=== PATIENT | female | born 1975 | race Caucasian/White ===

== ENCOUNTER 2018-06-10 07:04 | Day surgery (SDC) | payer MEDICAID ==
[2018-06-10] MEDS ORDERED: PROPOFOL 200 MG/20 ML VIAL As Ordered ×2 (08:55→09:02)
[2018-06-10] MEDS ORDERED: GLYCOPYRROLATE INJ 0.2 MG/ML 2 ML VIAL As Ordered (08:55)
[2018-06-10] MEDS ORDERED: fentaNYL 250 MCG/5 ML INJECTION (J3010) As Ordered (08:55)
[2018-06-10] MEDS ORDERED: ROCURONIUM BROMIDE 50 MG/5 ML VIAL As Ordered (08:55)
[2018-06-10] MEDS ORDERED: MIDAZOLAM INJ 2 MG/2 ML VIAL (J2250) As Ordered (08:55)
[2018-06-10] MEDS ORDERED: ONDANSETRON 4MG/2ML VIAL (J2405) As Ordered (08:55)
[2018-06-10] MEDS ORDERED: NEOSTIGMINE 10 MG/10 ML VIAL (J2710) As Ordered (08:55)
[2018-06-10] MEDS ORDERED: LIDOCAINE 2% INJ 100 MG/5 ML SDV (FOR ANES.) As Ordered (08:55)
[2018-06-10] MEDS ORDERED: dexameTHASONE 4 MG/ML 1ML VIAL (J1100) As Ordered (08:55)
[2018-06-10] MEDS ORDERED: SUGAMMADEX SODIUM 500 MG/5 ML VIAL (BRIDION) As Ordered (09:11)
[2018-06-10] MEDS: LIDOCAINE W/EPINEPHRINE 1% 20ML VIAL As Ordered (09:20)
[2018-06-10] MEDS ORDERED: fentaNYL 100 MCG/2 ML INJECTION (J3010) As Ordered (09:46)
[2018-06-10] MEDS: fentaNYL 100 MCG/2 ML INJECTION (J3010) IV ×4 (09:50→10:05)
[2018-06-10] MEDS ORDERED: LR 1,000 ML IV ×2 (10:00)
[2018-06-10] MEDS ORDERED: ONDANSETRON 4MG/2ML VIAL (J2405) IV (10:00)
[2018-06-10] MEDS: NORCO, ANEXSIA 5/325MG TABLET (HYDROcodone/ACETAMINOPHEN) PO ×2 (10:30→11:04)
[2018-06-10] MEDS ORDERED: NORCO, ANEXSIA 5/325MG TABLET (HYDROcodone/ACETAMINOPHEN) As Ordered (11:05)
[2018-06-10] MEDS ORDERED: ATENOLOL 25 MG TAB As Ordered ×2 (12:20→12:21)
[2018-06-10] MEDS: ATENOLOL 25 MG TAB PO (12:30)
[2018-06-10] MEDS ORDERED: ATENOLOL 25 MG TAB PO (13:00)
== END 2018-06-10 13:25 | disposition home or self-care (01) ==
LOC: M SDC 07:04
DX: K02.9 Dental caries, unspecified (principal); J44.9 Chronic obstructive pulmonary disease, unspecified; F31.9 Bipolar disorder, unspecified; R06.02 Shortness of breath; M12.9 Arthropathy, unspecified; L40.9 Psoriasis, unspecified; F41.9 Anxiety disorder, unspecified; F03.90 Unspecified dementia, unspecified severity, without behavioral disturbance, psychotic disturbance, mood disturbance, and anxiety; R51 Headache; R06.83 Snoring; E66.9 Obesity, unspecified; Z68.42 Body mass index [BMI] 45.0-49.9, adult; Z88.2 Allergy status to sulfonamides; Z79.899 Other long term (current) drug therapy; Z98.51 Tubal ligation status; Z87.442 Personal history of urinary calculi; Z72.0 Tobacco use; Z86.59 Personal history of other mental and behavioral disorders
CPT/HCPCS: D9223